=== PATIENT | female | born 1960 | race Two or more races ===

== ENCOUNTER 2018-05-07 08:19 | Day surgery (SDC) | payer OTHER ==
[2018-05-06 13:24] VITALS: BMI 32.3
[2018-05-07] MEDS ORDERED: ONDANSETRON 4 MG/2 ML VIAL IVPUSH PRN (09:13)
[2018-05-07] MEDS ORDERED: LACTATED RINGERS SOLUTION 1,000 ML IV SCH (09:15)
[2018-05-07] MEDS ORDERED: MIDAZOLAM HCL 2 MG/2 ML SINGLE DOSE VIAL ONE (10:10)
[2018-05-07] MEDS ORDERED: PROPOFOL 20 ML ONE (10:10)
[2018-05-07] MEDS ORDERED: ACETAMINOPHEN INJECTION 100 ML IVPB ONE (10:56)
--- NOTE | 2018-05-07 11:01 | HP ---
Satellite [facility] - Chief Complaint Chief Complaint: right knee pain History of Present Illness: right knee MM tear,OA, partial ACL tear History Source: Patient Limitations to Obtaining History: No Limitations - Past Medical History Allergies/Adverse Reactions: Allergies Allergy/AdvReac Type Severity Reaction Status Date / Time No Known Drug Allergies Allergy Verified 05/07/18 09:02 - Current Medications Current Medications: Home Medications Medication Instructions Recorded Amlodipine Besylate 5 mg PO DAILY 05/06/18 Simvastatin 20 mg PO DAILY 05/06/18 Satellite Physical Exam - Physical Examination Vital Signs: Vital Signs Period Temp Pulse Resp BP Sys/Gonzalez Pulse Ox Last 24 Hr 97.7 F 65 18 128/86 98 General Appearance: Well Nourished ENT: Clear Lung: Clear to auscultation Heart: Regular rate & rhythm Breasts: Soft Abdomen: Soft Extremities: No edema Satellite Impression/Plan - Impression/Plan Impression: right knee MM tear, OA, partial ACL tear Operative Procedure: right knee arthroscopy, partial medial meniscectomy, debridement chondroplasty, possible ACL thermal shrinkage Date to be Performed: 05/07/18
[2018-05-07] MEDS ORDERED: ceFAZolin SODIUM 1 GM VIAL IVPB ONE (11:45)
[2018-05-07] MEDS ORDERED: BUPIVACAINE HCL/PF (5 MG/ML) 30 ML VIAL IJ ONE (12:08)
--- NOTE | 2018-05-07 12:27 | OP ---
Operative Note - Note: Operative Date: 05/07/18 Pre-Operative Diagnosis: right knee pain, OA, MM tear Operation: right knee arthroscopy, partial medial and lateral meniscectomy, debridement chondroplasty, removal of loose body Post-Operative Diagnosis: Same as Pre-op Surgeon: Meño Yao Anesthesiologist/ASSEMBLER ENGINE: Allie Merida Anesthesia: General, Local Specimens Removed: loose body, shavings Estimated Blood Loss (mls): 0 Drains, Volume Out (mls): 0 Blood Volume Replaced (mls): 0 Fluid Volume Replaced (mls): 700 Operative Report Dictated: Yes
[2018-05-07 15:32] VITALS: BP 120/74; PULSE 60; TEMP 98.1
--- NOTE | 2018-05-08 08:13 | OP ---
DATE OF OPERATION: 05/07/2018 PREOPERATIVE DIAGNOSIS: Right knee pain, medial meniscus tear, and osteoarthritis. POSTOPERATIVE DIAGNOSIS: Right knee medial and lateral meniscus tear, arthritis, and loose body. PROCEDURE: Right knee arthroscopy, partial medial and lateral meniscectomy, debridement with chondroplasty, and removal of loose body. SURGEON: Georgina Linares MD SUPERVISOR FINAL: None. ELEMENTARY SCHOOL PROFESSIONAL: LUI Merida ANESTHESIA: LMA anesthesia, local injection of 20 mL of 0.5% Marcaine. DRAINS: None. COMPLICATIONS: None. SPECIMENS: Loose body and shavings, right knee. BLOOD LOSS: None. BLOOD GIVEN: None. FLUID REPLACEMENT: PlasmaLyte, 700 mL. INDICATIONS: This patient is a 57-year-old female with a preoperative diagnosis of right knee pain, medial meniscus tear, and osteoarthritis. After understanding the potential risks, complications, alternatives, and benefits of surgery versus nonsurgical treatment, the patient elected to undergo this procedure. She understands that she will not get complete relief of her symptoms because of her osteoarthritis. She may need additional surgery including a total knee replacement. She understands this, and other potential risks and complications were discussed, and she has elected to go forward with the surgery. DESCRIPTION OF PROCEDURE: The patient was brought to the operating room, peripheral IV placed, and IV sedation was given. Then, 2 g of IV Ancef was given. LMA anesthesia was induced. She was in the supine position. Ample Webril was placed around the right upper thigh, and tourniquet was applied, C-clamp leg-edward applied with a Styrofoam ring, and the right lower extremity was prepped and draped in sterile fashion, elevated, exsanguinated with an Esmarch bandage, and the tourniquet inflated to 275 mmHg. A superomedial outflow portal was established, a lateral portal was established, and under direct visualization using a spinal needle, a medial portal was established. Diagnostic arthroscopy was performed. In the medial compartment, the patient seemed to have a complex tear of the medial meniscus in the body and posterior horn. This was debrided with a straight biter forceps and the curved shaver. There was a large osteochondral loose body, which was also removed with the grasper. Photographs were taken before and after. Patient had large areas of grade 4 chondromalacia changes of the medial tibial plateau and medial femoral condyle. Then, gentle debridement with chondroplasty was performed here, as well. Next, our attention was turned to the intercondylar notch. The patient had a complex, but partial tear of the ACL. It was still intact, but did not look to be of good quality, and there were several longitudinal tears. It was gently debrided. Next, in the lateral compartment, patient was seen to have a lateral meniscus tear. This was also debrided with a curved shaver. The patient had large areas of grade 4 osteoarthritis. The lateral femoral condyle, lateral tibial plateau were gently debrided with chondroplasty. Photographs were taken. Next, our attention was turned to patellofemoral joint. Here, the patient had significant grade 4 osteoarthritis of the undersurface of the patella as well as the femoral trochlea. This was debrided with the shaver, cleaned up. Debridement with chondroplasty was performed. All excess saline was removed. The arthroscopy portal was closed with 3-0 nylon sutures. Then, 20 mL of 0.5% Marcaine was introduced into the joint. The area was then washed and dried, covered with Xeroform, 4x4 gauze, Webril, and a 6-inch KATHY bandage was applied. Tourniquet was taken down after total tourniquet of 28 minutes. There were no complications during the case. The patient tolerated the procedure well and was brought to the ambulatory recovery room in stable condition. GEORGINA LINARES M.D. [id number]
--- NOTE | 2018-05-09 13:28 | PATH ---
Surgical Pathology Report Patient Name: LORRAINE GONZALEZ [facility]. Rec. #: [id number] /Age/Gender: 1960 (Age: 57) / F Account: [id number] Location: [facility] SURGICAL Taken: 05/07/2018 Received: 05/07/2018 Reported: 05/09/2018 Physicians: Meño Yao M.D. Specimen(s) Received A: RIGHT KNEE SHAVINGS B: RIGHT KNEE LOOSE BODY Clinical History Internal derangement right knee Final Diagnosis A. KNEE, RIGHT, ARTHROSCOPIC SHAVING: FIBROCARTILAGE WITH MYXOID DEGENERATIVE CHANGES, ALONG WITH PORTIONS OF SYNOVIUM AND HYALINE CARTILAGE. B. LOOSE BODY, RIGHT KNEE, REMOVAL: BONE WITH ATTACHED CARTILAGE CONSISTENT WITH LOOSE BODY. Electronically Signed Nacho Walker M.D. Gross Description A. Received in formalin, labeled "right knee shavings," is a 4.0 x 3.5 x 0.3 cm. aggregate of you-yellow soft tissue fragments. A metals sales representative portion is submitted in one cassette. B. Received in formalin labeled "right knee loose body," is a 1.1 x 0.5 x 0.4 cm you-yellow, hard portion of bone and cartilage. The specimen is bisected and entirely submitted in one cassette, following decalcification. 05/08/201805/08/2018
== END 2018-05-07 14:15 | disposition home or self-care (01) ==
LOC: JASU-SURG 08:19
PROVIDERS: ATTEND Orthopaedic Surgery
PROC: 0SBC4ZZ Excision of Right Knee Joint, Percutaneous Endoscopic Approach (ICD-10-PCS; 2018-05-07)
PROC: 0SBC4ZZ Excision of Right Knee Joint, Percutaneous Endoscopic Approach (ICD-10-PCS; principal; 2018-05-07 10:00)
DX: S83.281A Other tear of lateral meniscus, current injury, right knee, initial encounter (principal); S83.241A Other tear of medial meniscus, current injury, right knee, initial encounter; X58.XXXA Exposure to other specified factors, initial encounter; Y93.9 Activity, unspecified; Y92.9 Unspecified place or not applicable; Y99.9 Unspecified external cause status
CPT/HCPCS: 88304-TC; 88311-TC; 94760; 97116-GP; J0131